=== PATIENT | female | born 1935 | race Caucasian/White ===

== ENCOUNTER 2021-09-13 16:13 | Emergency (ER) | payer MEDICARE, OTHER ==
[2021-09-13 17:08] LABS: BASOPHIL 0.2 % (0-2); EOSINOPHIL 0.6 % (0-7); HCT 26.2 % (37.0-47.0); HGB 8.6 g/dl (12.5-16.0); LYMPHOCYTE 59.6 % (15-48); MCH 32.1 pg (25.0-31.0); MCHC 32.8 g/dL (32.0-36.0); MCV 97.8 fL (78.0-100.0); MONOCYTE 14.9 % (0-12); NEUTROPHIL 24.5 % (41-80); NRBC 0; PLT 145 K/uL (150-400); RBC 2.68 M/uL (4.20-5.40); RDW 15.6 % (11.5-14.0); WBC 8.1 K/uL (4.0-10.5)
[2021-09-13 17:18] LABS: INR 1.14 (0.9-1.2); PTT 33.2 SECONDS (24.4-34.7)
[2021-09-13 17:34] LABS: LACTIC ACID 1.1 mmol/L (0.4-1.9)
[2021-09-13 17:41] LABS: CORONAVIRUS 2019 SARS-COV-2 NEGATIVE (NEGATIVE); INFLUENZA A NAA NEGATIVE (NEGATIVE)
[2021-09-13 18:17] LABS: CREATININE 0.78 mg/dL (0.51-0.95)
[2021-09-13 18:18] LABS: BILIRUBIN - TOTAL 0.4 mg/dL (0.2-1.0); GLOBULIN (CALCULATION) 9.1 g/dL; POTASSIUM 3.8 mmol/L (3.5-5.1); TOTAL PROTEIN 11.1 g/dL (6.4-8.2)
[2021-09-13] MEDS ORDERED: MUCINEX DM ER1 EACH PO (20:30)
[2021-09-13] MEDS ORDERED: TRELEGY ELLIPT1 EAC1 INH (20:30)
[2021-09-13] MEDS ORDERED: VENTOLIN HFA IN18 GM INH (20:30)
[2021-09-13] MEDS ORDERED: ATROVENT HFA12.9 GM INH (20:30)
[2021-09-13] MEDS ORDERED: AZITHROMYCIN250 MG PO (20:30)
== END 2021-09-13 21:07 | disposition home or self-care (01) ==
LOC: FER 16:13
PROVIDERS: Emergency Medicine
DX: J40 Bronchitis, not specified as acute or chronic (principal); Z20.822 Contact with and (suspected) exposure to COVID-19; Z88.0 Allergy status to penicillin
CPT/HCPCS: 36415; 36600; 71045; 71275; 80053; 82803; 83605; 83880; 84145; 84484; 85025; 85610; 85730; 87040; 93005; 94640; J0456; J0696; J2930; J7050; U0002

== ENCOUNTER 2021-12-16 10:31 | Emergency (ER) | payer MEDICARE, OTHER ==
[~2021-12-16 10:31] MED LIST: ATROVENT HFA12.9 GM INH; AZITHROMYCIN250 MG PO; CHILDREN'S ASPI81 MG PO; DUONEB 2.5-0.5M1 AMP INH; ELAVIL50 MG PO; HCTZ25 MG PO; K-TAB ER20 MEQ PO; LASIX40 MG PO; MACROBID100 MG PO; MUCINEX DM ER1 EACH PO; TOPROL XL25 MG PO; TRELEGY ELLIPT1 EAC1 INH; VENTOLIN HFA IN18 GM INH
[2021-12-16 12:20] LABS: BASOPHIL 0.6 % (0-2); EOSINOPHIL 0.2 % (0-7); HCT 25.2 % (37.0-47.0); HGB 8.8 g/dl (12.5-16.0); LYMPHOCYTE 44.9 % (15-48); MCH 37.6 pg (25.0-31.0); MCHC 34.9 g/dL (32.0-36.0); MCV 107.7 fL (78.0-100.0); MPV 9.9 fL (6.0-9.5); NEUTROPHIL 37.9 % (41-80); NRBC 0; PLT 149 K/uL (150-400); RBC 2.34 M/uL (4.20-5.40); RDW 17.2 % (11.5-14.0); WBC 5.4 K/uL (4.0-10.5)
[2021-12-16 12:35] LABS: INR 1.2 (0.9-1.2); PROTHROMBIN TIME 14.8 SECONDS (11.9-13.9); PTT 27.7 SECONDS (24.9-34.6)
[2021-12-16 12:36] LABS: LACTIC ACID 1.1 mmol/L (0.4-1.9)
[2021-12-16 13:03] LABS: ALBUMIN 1.9 g/dL (3.4-5.0); ALKALINE PHOSHATASE 54 U/L (46-116); ALT 9 U/L (14-59); BILIRUBIN - TOTAL 0.7 mg/dL (0.2-1.0); BUN 27 mg/dL (7-18); BUN/CREAT RATIO (CALC) 34.6 RATIO; CHLORIDE 101 mmol/L (98-107); CO2 (BICARBONATE) 28 mmol/L (21-32); CREATININE 0.78 mg/dL (0.51-0.95); GLOBULIN (CALCULATION) 8.6 g/dL; GLUCOSE 96 mg/dL (74-106); MAGNESIUM 1.8 mg/dL (1.8-2.4); POTASSIUM 3.2 mmol/L (3.5-5.1); TOTAL PROTEIN 10.5 g/dL (6.4-8.2)
[2021-12-16 13:04] LABS: AST 25 U/L (15-37)
== END 2021-12-16 19:20 | disposition other institution (70) ==
LOC: FER 10:31
PROVIDERS: Emergency Medicine
DX: G93.89 Other specified disorders of brain (principal); J90 Pleural effusion, not elsewhere classified; J81.1 Chronic pulmonary edema; I10 Essential (primary) hypertension; Z20.822 Contact with and (suspected) exposure to COVID-19; Z88.0 Allergy status to penicillin
CPT/HCPCS: 36415; 70450; 71045; 80053; 82140; 83605; 83735; 83880; 85025; 85610; 85730; 93005; G0480; J1100; J1940; U0002